=== PATIENT | male | born 1995 | race Caucasian/White ===

== ENCOUNTER 2017-04-03 08:01 | Emergency (ER) | payer OTHER ==
[~2017-04-03] VITALS: Ht 182.9 cm; Wt 88.6 kg
[~2017-04-03 08:01] MED LIST: HYDROCODONE-AP1 EAC9 PO
[2017-04-03 10:16] LABS: HEMATOCRIT 42.2 % (38.0-50.0); HEMOGLOBIN 14.6 G/DL (12.5-16.6); MCH 30.5 PG (29.0-34.0); MCHC 34.6 G/DL (30.0-36.0); MCV 88.1 FL (86-99); PLATELET COUNT 218 K/uL (156-360); RBC DIS.WIDTH-CV 12.3 % (11.8-14.6); RBC DIS.WIDTH-SD 39.8 % (39-53); RED BLOOD COUNT 4.79 M/uL (4.00-5.50); WHITE BLOOD COUNT 8.9 K/uL (4.1-10.2)
[2017-04-03 10:20] LABS: APPEARANCE SL.HAZY ((CLEAR)); BILIRUBIN NEGATIVE; BLOOD MODERATE; COLOR YELLOW ((YELLOW)); GLUCOSE (STRIP) NEGATIVE; KETONES NEGATIVE; LEUKOCYTES TRACE; NITRITE NEGATIVE; PROTEIN (STRIP) 30; SPECIFIC GRAVITY 1.019 (1.000-1.030); UROBILINOGEN 0.2 MG/DL (0.2-1.0)
[2017-04-03 10:27] LABS: CHLORIDE 106 mEq/L (99-109); POTASSIUM 3.9 mEq/L (3.7-5.4); SODIUM 141 mEq/L (136-147)
[2017-04-03 10:28] LABS: BACTERIA RARE /HPF; EPITHELIAL CELLS RARE /HPF; MUCUS 1+ /LPF; RED BLOOD CELLS TNTC /HPF (0-5)
[2017-04-03 10:29] LABS: GLUCOSE 95 mg/dL (70-99)
[2017-04-03 10:33] LABS: CREATININE 1.1 mg/dL (0.6-1.3); GFR ESTIMATE (CALCULATED) > 59 mL/min/ (58.99-99999)
[2017-04-03 10:34] LABS: UREA NITROGEN (BUN) 13 mg/dL (9-23)
[2017-04-03] MEDS ORDERED: FLOMAX0.4 MG PO (12:17)
[2017-04-03] MEDS ORDERED: NORCO 5/3251 TABLET PO (12:17)
[2017-04-03] MEDS ORDERED: ZOFRAN ODT8 MG PO (12:17)
[2017-04-03 13:01] VITALS: BP 108/70
== END 2017-04-03 13:03 | disposition home or self-care (01) ==
LOC: EME 08:01
PROVIDERS: Physician Assistant
DX: N20.1 Calculus of ureter (principal); Z87.820 Personal history of traumatic brain injury
CPT/HCPCS: 74176; 76870; 80048; 81003; 85027; 99281; 99285; J2270

== ENCOUNTER → 2017-07-10 21:50 | Emergency (ER) | payer OTHER ==
[~2017-07-10 21:50] MED LIST changes: +FLOMAX0.4 MG PO; +NORCO 5/3251 TABLET PO; +ZOFRAN ODT8 MG PO
== END | disposition left against medical advice (07) ==
LOC: EME 21:50
DX: T14.8XXA Other injury of unspecified body region, initial encounter (principal); W54.0XXA Bitten by dog, initial encounter; Z53.21 Procedure and treatment not carried out due to patient leaving prior to being seen by health care provider